=== PATIENT | male | born 1955 | race Caucasian/White ===

== ENCOUNTER 2022-11-09 10:03 | Emergency (ER) | payer MEDICARE, MEDICAID ==
[~2022-11-09] VITALS: Ht 157.5 cm; Wt 62.6 kg
[2022-11-09 10:08] VITALS: BP 121/64
[2022-11-09 10:45] LABS: BASOPHILS % (AUTO) 0.5 % (0.0-2.0); EOSINOPHILS % (AUTO) 0.4 % (0.0-4.0); HEMATOCRIT 39.4 % (36-52); HEMOGLOBIN 13.6 g/dL (12.0-18.0); LYMPHOCYTES # (AUTO) 1.7 K/uL (2.0-11.5); MEAN CORPUSCULAR HEMOGLOBIN 28 pg (27-31); MEAN CORPUSCULAR HGB CONC 34 g/dL (33-37); MEAN CORPUSCULAR VOLUME 81.2 fL (80-94); MONOCYTES # (AUTO) 0.7 K/uL (0.8-1.0); MONOCYTES % (AUTO) 7.8 % (1.7-9.3); NEUTROPHILS # (AUTO) 6.2 K/uL (1.8-7.7); NEUTROPHILS % (AUTO) 71.3 % (42.2-75.2); PLATELET COUNT (AUTO) 299 K/uL (140-450); RED BLOOD CELL COUNT(AUTO) 4.86 MIL/uL (4.20-6.10); RED CELL DISTRIBUTION WIDTH 13.4 % (11.6-13.7); WHITE BLOOD COUNT (AUTO) 8.7 K/uL (4.8-10.8)
[2022-11-09 11:11] LABS: ALBUMIN 3.7 g/dL (3.4-5.0); ANION GAP 9.1 (8-16); CARBON DIOXIDE 30.8 mmol/L (21-32); CREATININE 0.8 mg/dL (0.6-1.3); POTASSIUM 3.9 mmol/L (3.5-5.1); TOTAL BILIRUBIN 1.3 mg/dL (0.0-1.0)
[2022-11-09] MEDS ORDERED: AZIT500T PO (11:46)
[2022-11-09] MEDS ORDERED: BENZ100C6 PO (11:48)
[2022-11-09 12:15] VITALS: BP 128/72
== END 2022-11-09 12:15 | disposition home or self-care (01) ==
LOC: MED 10:03
DX: J20.9 Acute bronchitis, unspecified (principal); R07.9 Chest pain, unspecified; Z79.899 Other long term (current) drug therapy
CPT/HCPCS: 36415; 71046; 80053; 83880; 84484; 85025; 93005; 99285

== ENCOUNTER 2022-11-15 15:15 | Emergency (ER) | payer MEDICARE, MEDICAID ==
[~2022-11-15] VITALS: Ht 157.5 cm; Wt 60.4 kg
[~2022-11-15 15:15] MED LIST: AZIT500T PO; BENZ100C6 PO
[2022-11-15 15:28] VITALS: BP 96/55
--- NOTE | 2022-11-15 15:35 | NUR ---
PT AMB TO BED 4.
[2022-11-15] MEDS ORDERED: IBUPROFEN 600 MG TAB PO ONE (16:00)
[2022-11-15] MEDS ORDERED: ALUMINUM HYD/MAG/SIMETHICONE 30 ML UDC PO ONE (16:00)
[2022-11-15] MEDS ORDERED: ACETAMINOPHEN EXTRA STRENGTH 500 MG TAB PO ONE (16:00)
[2022-11-15] MEDS ORDERED: FAMOTIDINE 20 MG TAB PO ONE (16:00)
[2022-11-15 16:21] LABS: BASOPHILS # (AUTO) 0.1 K/uL (0.00-0.22); BASOPHILS % (AUTO) 0.8 % (0.0-2.0); EOSINOPHILS # (AUTO) 0.1 K/uL (0-0.4); EOSINOPHILS % (AUTO) 0.9 % (0.0-4.0); HEMATOCRIT 37.5 % (36-52); HEMOGLOBIN 12.5 g/dL (12.0-18.0); LYMPHOCYTES # (AUTO) 2.6 K/uL (2.0-11.5); LYMPHOCYTES % (AUTO) 35.7 % (20.5-51.1); MEAN CORPUSCULAR HEMOGLOBIN 28 pg (27-31); MEAN CORPUSCULAR HGB CONC 33 g/dL (33-37); MONOCYTES # (AUTO) 0.7 K/uL (0.8-1.0); MONOCYTES % (AUTO) 9.7 % (1.7-9.3); NEUTROPHILS # (AUTO) 3.8 K/uL (1.8-7.7); NEUTROPHILS % (AUTO) 52.9 % (42.2-75.2); PLATELET COUNT (AUTO) 460 K/uL (140-450); RED BLOOD CELL COUNT(AUTO) 4.51 MIL/uL (4.20-6.10); RED CELL DISTRIBUTION WIDTH 13.4 % (11.6-13.7); WHITE BLOOD COUNT (AUTO) 7.3 K/uL (4.8-10.8)
[2022-11-15 17:29] LABS: ALBUMIN 3.1 g/dL (3.4-5.0); ANION GAP 10.2 (8-16); ASPARTATE AMINOTRANSFERASE 19 U/L (15-37); CARBON DIOXIDE 30.5 mmol/L (21-32); CHLORIDE 101 mmol/L (98-107); GFR ARICAN-AMERICAN 96 mL/min (>90); GLUCOSE 139 mg/dL (74-106); LIPASE 134 U/L (73-393); POTASSIUM 4.7 mmol/L (3.5-5.1); SODIUM SERUM 137 mmol/L (136-145); TOTAL BILIRUBIN 0.4 mg/dL (0.0-1.0); UREA NITROGEN, BLOOD 14 mg/dL (7-18)
[2022-11-15] MEDS ORDERED: ALUM355S59 PO (18:02)
[2022-11-15] MEDS ORDERED: DEXT118S25 PO (18:02)
[2022-11-15] MEDS ORDERED: ACET-10509 PO (18:02)
[2022-11-15 18:33] VITALS: BP 112/53
--- NOTE | 2022-11-15 18:34 | NUR ---
Patient discharged with v/s stable. Written and verbal after care instructions given and explained. Patient alert, oriented and verbalized understanding of instructions. Ambulatory with steady gait. All questions addressed prior to discharge. ID band removed. Patient advised to follow up with PMD. Rx of GUAIFENESIN, MYLANTA, TYLENOL given. Patient educated on indication of medication including possible reaction and side effects. Opportunity to ask questions provided and answered.
== END 2022-11-15 18:30 | disposition home or self-care (01) ==
LOC: MED 15:15
DX: R07.9 Chest pain, unspecified (principal); K21.9 Gastro-esophageal reflux disease without esophagitis; E11.9 Type 2 diabetes mellitus without complications; Z79.4 Long term (current) use of insulin; Z79.899 Other long term (current) drug therapy
CPT/HCPCS: 36415; 71045; 80053; 83690; 84484; 85025; 93005; 99285; Q0092

== ENCOUNTER 2023-02-23 09:20 | Emergency (ER) | payer MEDICARE, MEDICAID ==
[~2023-02-23] VITALS: Ht 157.5 cm; Wt 63.0 kg
[~2023-02-23 09:20] MED LIST changes: +ACET-10509 PO; +ALUM355S59 PO; +DEXT118S25 PO
[2023-02-23 09:26] VITALS: BP 128/62
--- NOTE | 2023-02-23 09:30 | NUR ---
pt ambulatory to [facility] w steady gait.
[2023-02-23 10:10] LABS: EOSINOPHILS # (AUTO) 0.1 K/uL (0-0.4); EOSINOPHILS % (AUTO) 2.7 % (0.0-4.0); HEMATOCRIT 40.2 % (36-52); HEMOGLOBIN 13.4 g/dL (12.0-18.0); LYMPHOCYTES # (AUTO) 1.1 K/uL (2.0-11.5); LYMPHOCYTES % (AUTO) 31.6 % (20.5-51.1); MEAN CORPUSCULAR HEMOGLOBIN 28 pg (27-31); MEAN CORPUSCULAR HGB CONC 33 g/dL (33-37); MEAN CORPUSCULAR VOLUME 84.1 fL (80-94); MONOCYTES # (AUTO) 0.3 K/uL (0.8-1.0); MONOCYTES % (AUTO) 9.5 % (1.7-9.3); NEUTROPHILS # (AUTO) 1.9 K/uL (1.8-7.7); NEUTROPHILS % (AUTO) 55.2 % (42.2-75.2); PLATELET COUNT (AUTO) 266 K/uL (140-450); RED BLOOD CELL COUNT(AUTO) 4.77 MIL/uL (4.20-6.10); RED CELL DISTRIBUTION WIDTH 14.9 % (11.6-13.7); WHITE BLOOD COUNT (AUTO) 3.5 K/uL (4.8-10.8)
[2023-02-23 10:25] LABS: ALBUMIN 3.6 g/dL (3.4-5.0); ANION GAP 9.4 (8-16); CARBON DIOXIDE 31.7 mmol/L (21-32); CREATININE 0.7 mg/dL (0.6-1.3); POTASSIUM 4.1 mmol/L (3.5-5.1); TOTAL BILIRUBIN 0.7 mg/dL (0.0-1.0)
--- NOTE | 2023-02-23 11:01 | NUR ---
HERE FOR LOWER ABD PAIN, AWAITS CT
[2023-02-23 11:31] LABS: APPEARANCE,URINE CLEAR (CLEAR); BILIRUBIN,URINE NEGATIVE (NEGATIVE); BLOOD, URINE NEGATIVE (NEGATIVE); COLOR,URINE YELLOW (YELLOW); LEUKOCYTE ESTERASE ,URINE NEGATIVE (NEGATIVE); NITRITE, URINE NEGATIVE (NEGATIVE); PH,URINE 6.5 (5.0-9.0); UGLUCOSE NEGATIVE (NEGATIVE)
[2023-02-23] MEDS ORDERED: DOCU-299 PO (15:03)
[2023-02-23] MEDS ORDERED: MIRABULK PO (15:03)
[2023-02-23 15:39] VITALS: BP 125/78
== END 2023-02-23 15:40 | disposition home or self-care (01) ==
LOC: MED 09:20
DX: K59.00 Constipation, unspecified (principal); K76.89 Other specified diseases of liver; M47.896 Other spondylosis, lumbar region; N40.0 Benign prostatic hyperplasia without lower urinary tract symptoms; E11.9 Type 2 diabetes mellitus without complications; Z79.4 Long term (current) use of insulin; Z79.899 Other long term (current) drug therapy; Z90.49 Acquired absence of other specified parts of digestive tract; Z98.890 Other specified postprocedural states
CPT/HCPCS: 36415; 74177; 80053; 81003; 83690; 85025; 99285; Q9967

== ENCOUNTER 2023-04-14 18:09 | Emergency (ER) | payer MEDICARE, MEDICAID ==
[~2023-04-14] VITALS: Ht 157.5 cm; Wt 59.6 kg
[~2023-04-14 18:09] MED LIST changes: +DOCU-299 PO; +MIRABULK PO
[2023-04-14 18:29] VITALS: BP 125/65; PULSE 61; RESP 18; TEMP 97.6; O2SAT 96
[2023-04-14] MEDS ORDERED: AMOX1TER12 PO (20:35)
[2023-04-14 20:41] VITALS: BP 122/74; PULSE 74; RESP 18; TEMP 97.6; O2SAT 99
--- NOTE | 2023-04-14 20:42 | NUR ---
Patient discharged with v/s stable. Written and verbal after care instructions given and explained. Patient alert, oriented and verbalized understanding of instructions. Ambulatory with steady gait. All questions addressed prior to discharge. ID band removed. Patient advised to follow up with PMD. Rx of amox-clav er 1000-62.5 given. Patient educated on indication of medication including possible reaction and side effects. Opportunity to ask questions provided and answered.
== END 2023-04-14 20:42 | disposition home or self-care (01) ==
LOC: MED 18:09
DX: S61.531A Puncture wound without foreign body of right wrist, initial encounter (principal); W54.0XXA Bitten by dog, initial encounter; Y93.89 Activity, other specified; Y92.89 Other specified places as the place of occurrence of the external cause; Y99.8 Other external cause status
CPT/HCPCS: 73110; 90471; 90715; 99283

== ENCOUNTER 2023-04-16 01:15 | Emergency (ER) | payer MEDICARE, MEDICAID ==
[~2023-04-16] VITALS: Ht 157.5 cm; Wt 54.4 kg
[~2023-04-16 01:15] MED LIST changes: +AMOX1TER12 PO
[2023-04-16 01:27] VITALS: BP 120/60; PULSE 65; RESP 17; TEMP 98; O2SAT 98
--- NOTE | 2023-04-16 01:27 | NUR ---
to bed ambulatory
--- NOTE | 2023-04-16 02:10 | NUR ---
Patient being evaluated by physician at bedside.
[2023-04-16] MEDS ORDERED: AMOXIL/CLAVULANATE 875/125 MG 1 TAB PO ONE (02:15)
[2023-04-16 02:31] VITALS: BP 120/60; PULSE 65; RESP 17; TEMP 98; O2SAT 98
--- NOTE | 2023-04-16 02:33 | NUR ---
Patient discharged with v/s stable. Written and verbal after care instructions given and explained. Patient verbalized understanding. Ambulatory with steady gait. All questions addressed prior to discharge. Advised to follow up with PMD. PT LEFT WITH HIS BELONGINGS
== END 2023-04-16 02:33 | disposition home or self-care (01) ==
LOC: MED 01:15
DX: S51.831A Puncture wound without foreign body of right forearm, initial encounter (principal); L03.113 Cellulitis of right upper limb; E11.9 Type 2 diabetes mellitus without complications; Z79.4 Long term (current) use of insulin; Z79.899 Other long term (current) drug therapy; W54.0XXA Bitten by dog, initial encounter; Y93.89 Activity, other specified; Y92.89 Other specified places as the place of occurrence of the external cause; Y99.8 Other external cause status
CPT/HCPCS: 99283

== ENCOUNTER 2024-01-16 07:39 | Emergency (ER) | payer MEDICARE, OTHER ==
[~2024-01-16] VITALS: Ht 157.5 cm; Wt 63.5 kg
[2024-01-16 07:45] VITALS: BP 128/66; PULSE 80; RESP 18; TEMP 98.3; O2SAT 98
[2024-01-16] MEDS: KETOROLAC 30 MG/ML VIAL IM ONE (08:34)
[2024-01-16] MEDS: LIDOCAINE 5% 1 EA PATCH TP ONE (08:35)
[2024-01-16] MEDS ORDERED: IBUP-2213 PO (09:09)
[2024-01-16] MEDS ORDERED: LID5T TP (09:09)
[2024-01-16 09:29] VITALS: BP 128/66; PULSE 80; RESP 18; TEMP 98.3; O2SAT 98
== END 2024-01-16 09:31 | disposition home or self-care (01) ==
LOC: MED 07:39
DX: M25.512 Pain in left shoulder (principal); M25.511 Pain in right shoulder; M54.10 Radiculopathy, site unspecified; E11.9 Type 2 diabetes mellitus without complications; Z79.1 Long term (current) use of non-steroidal anti-inflammatories (NSAID); Z79.2 Long term (current) use of antibiotics; Z79.899 Other long term (current) drug therapy
CPT/HCPCS: 73030; 93005; 96372; 99283; J1885